=== PATIENT | male | born 1960 | race Caucasian/White ===

== ENCOUNTER 2017-01-19 13:04 | Emergency (ER) | payer BC ==
[2017-01-19 13:08] VITALS: BP 195/108; PULSE 77; TEMP 98.6; BMI 26.9
--- NOTE | 2017-01-19 14:18 | PDOC ---
History of Present Illness - General Chief Complaint: Pain, Acute Stated Complaint: RT FEET PAIN Time Seen by Provider: 01/19/17 13:34 History Source: Patient Exam Limitations: No Limitations - History of Present Illness Initial Comments: 01/19/17 14:15 56 yr male with history of right foot fracture in the past states he was walking in the ocean yesterday with water shoes on and felt a pop to the bottom of his right foot. Past History - Past Medical History Allergies/Adverse Reactions: Allergies Allergy/AdvReac Type Severity Reaction Status Date / Time No Known Allergies Allergy Verified 01/19/17 13:05 Home Medications: Ambulatory Orders Amlodipine Besylate [Norvasc -] 5 mg PO DAILY 01/19/17 Aspirin [ASA -] 81 mg PO DAILY 01/19/17 Losartan/Hydrochlorothiazide [Hyzaar 100-25 Tablet] 1 each PO DAILY 01/19/17 Metoprolol Succinate [Toprol Xl -] 100 mg PO DAILY 01/19/17 Pravastatin Sodium [Pravachol (Nf)] 40 mg PO DAILY 01/19/17 Prednisone [Deltasone -] 20 mg PO DAILY 01/19/17 Zolpidem Tartrate [Ambien] 10 mg PO DAILY 01/19/17 HTN: Yes - Psycho/Social/Smoking Cessation Hx Anxiety: No Suicidal Ideation: No Smoking History: Never smoked Have you smoked in the past 12 months: No Information on smoking cessation initiated: No Hx Alcohol Use: No Drug/Substance Use Hx: No Substance Use Type: Alcohol *Physical Exam - Vital Signs Last Vital Signs Temp Pulse Resp BP Pulse Ox 98.6 F 77 18 195/108 100 01/19/17 13:06 01/19/17 13:06 01/19/17 13:06 01/19/17 13:06 01/19/17 13:06 - Physical Exam General Appearance: Yes: Nourished, Appropriately Dressed HEENT: positive: EOMI, EVAN Neck: positive: Supple Respiratory/Chest: positive: Lungs Clear, Normal Breath Sounds Cardiovascular: positive: Regular Rhythm, Regular Rate Extremity: positive: Normal Capillary Refill, Tender (right base of fifth metatarsal, palpable bony deformity that is chronic) Integumentary: positive: Normal Color, Dry, Warm 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 xray shows transverse fracture through the 5th metatarsal that appears chronic, pt states he has old injury old fracture to that area pt has no swelling or any new deformity 01/19/17 14:20 *DC/Admit/Observation/Transfer Diagnosis at time of Disposition: Injury of right foot Qualifiers: Encounter type: initial encounter Qualified Code(s): S99.921A - Unspecified injury of right foot, initial encounter - Discharge Dispostion Disposition: HOME Condition at time of disposition: Good - Referrals Referrals: Adam Black [Primary Care Provider] - - Patient Instructions Additional Instructions: please follow with your foot doctor this week elevate and apply ice to the area of pain every 2hrs for 15-20 minutes take aleve for pain as needed use the insert in your shoes to help with support - Post Discharge Activity
== END 2017-01-19 14:24 | disposition home or self-care (01) ==
LOC: JERFT 13:04
DX: S99.821A Other specified injuries of right foot, initial encounter (principal); X50.9XXA Other and unspecified overexertion or strenuous movements or postures, initial encounter; Y93.01 Activity, walking, marching and hiking; Y92.832 Beach as the place of occurrence of the external cause; Y99.8 Other external cause status
CPT/HCPCS: 73630-TC-RT; 99281-25

== ENCOUNTER 2017-02-19 13:28 | Emergency (ER) | payer OTHER, BC ==
[2017-02-19 13:36] VITALS: BP 165/95; PULSE 62; TEMP 98.6; BMI 26.9
[2017-02-19] MEDS ORDERED: KETOROLAC TROMETHAMINE 60 MG/2 ML VIAL IM ONE (14:07)
[2017-02-19] MEDS ORDERED: KETOROLAC TROMETHAMINE 60 MG/2 ML VIAL ONE (14:08)
--- NOTE | 2017-02-19 14:44 | PDOC ---
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 Patient states symptoms have worsened with movement and denies any weakness to the extremity, swelling to the area or previous injury to affected area. Timing/Duration: getting worse, intermittent Severity: moderate Associated Symptoms: denies: denies symptoms Past History - Travel Traveled outside of the country in the last 30 days: No - Past Medical History Allergies/Adverse Reactions: Allergies Allergy/AdvReac Type Severity Reaction Status Date / Time No Known Allergies Allergy Verified 02/19/17 13:36 Home Medications: Ambulatory Orders Amlodipine Besylate [Norvasc -] 5 mg PO DAILY 01/19/17 Aspirin [ASA -] 81 mg PO DAILY 01/19/17 Losartan/Hydrochlorothiazide [Hyzaar 100-25 Tablet] 1 each PO DAILY 01/19/17 Metoprolol Succinate [Toprol Xl -] 100 mg PO DAILY 01/19/17 Pravastatin Sodium [Pravachol (Nf)] 40 mg PO DAILY 01/19/17 Zolpidem Tartrate [Ambien] 10 mg PO DAILY 01/19/17 HTN: Yes Other medical history: denies - Suicide/Smoking/Psychosocial Hx Smoking History: Never smoked Have you smoked in the past 12 months: No Information on smoking cessation initiated: No Hx Alcohol Use: No Drug/Substance Use Hx: No Substance Use Type: None Patient Lives Alone: No Lives with/in: spouse/SO Review of Systems - Review of Systems Able to Perform ROS?: Yes Constitutional: No: Symptoms Reported HEENTM: No: Symptoms Reported Respiratory: No: Symptoms reported Cardiac (ROS): No: Symptoms Reported ABD/GI: No: Symptoms Reported Musculoskeletal: Yes: Joint Pain (rt shoulder), Neck Pain Integumentary: No: Symptoms Reported Neurological: No: Symptoms reported Hematologic/Lymphatic: No: Symptoms Reported *Physical Exam - Vital Signs Last Vital Signs Temp Pulse Resp BP Pulse Ox 98.6 F 62 19 165/95 100 02/19/17 13:33 02/19/17 13:33 02/19/17 13:33 02/19/17 13:33 02/19/17 13:33 - Physical Exam General Appearance: Yes: Nourished, Appropriately Dressed. No: Apparent Distress Neck: positive: Supple, Tender lateral (rt scm). negative: Decreased range of motion Respiratory/Chest: positive: Lungs Clear, Normal Breath Sounds. negative: Respiratory Distress, Accessory Muscle Use Cardiovascular: positive: Regular Rhythm, Regular Rate. negative: Murmur Extremity: positive: Normal Capillary Refill, Normal Inspection, Tender (rt ac joint). negative: Normal Range of Motion (unable to perform rt arm lateral or front raise) Integumentary: positive: Normal Color, Warm, Moist Neurologic: positive: Motor Strength 5/5 (rt shoulder shrug and hand grasp) ED Treatment Course - RADIOLOGY Radiology Studies Ordered: Category Date Time Status SHOULDER-RIGHT [RAD] Stat Radiology 02/19/17 14:07 Taken SPINE-CERVICAL [RAD] Stat Radiology 02/19/17 14:07 Taken - Medications Given in the ED: ED Medications Discontinued Medications Generic Name Dose Route Start Last Admin Trade Name Freq PRN Reason Stop Dose Admin Ketorolac Tromethamine 60 mg 02/19/17 14:07 02/19/17 14:12 Toradol Injection - IM 02/19/17 14:08 60 mg ONCE ONE Administration Medical Decision Making - Medical Decision Making 02/19/17 14:30 Pt here for evaluation of ongoing or worsening right shoulder pain. Patient on exam had point tenderness to the right ac joint joint along with limited mobility performing lateral in front raise. Patient with slightly rotator cuff injury patient ordered for Toradol IM with recommendations to follow-up with orthopedist. 02/19/17 15:06 X-ray of the cervical spine shows moderate to marked right c6-C7, left C3 to C4 and moderate left C6-C7. Stenosis with multilevel bilateral degenerative facet athropathy. Shoulder x-ray shows mild to moderate degenerative bony hypertrophic change. Acromioclavicular degenerative athropathy noted with an elliptical shape calcified/ossified soft tissue focus noted within the adjacent area to the proximal humeral metaphysis laterally as discussed. *DC/Admit/Observation/Transfer Diagnosis at time of Disposition: Right shoulder injury Qualifiers: Encounter type: initial encounter Qualified Code(s): S49.91XA - Unspecified injury of right shoulder and upper arm, initial encounter - Discharge Dispostion Disposition: HOME Condition at time of disposition: Good - Referrals Referrals: Adam Black [Primary Care Provider] - Mohsen Velasco MD [Staff Physician] - - Patient Instructions Printed Discharge Instructions: DI for Shoulder Pain Additional Instructions: Please follow-up with Dr. Velasco, the orthopedist as discussed. May take Motrin every 6-8 hours. May apply ice to the affected area.
== END 2017-02-19 15:18 | disposition home or self-care (01) ==
LOC: JERFT 13:28
PROC: 3E0233Z Introduction of Anti-inflammatory into Muscle, Percutaneous Approach (ICD-10-PCS; principal; 2017-02-19)
DX: S49.81XA Other specified injuries of right shoulder and upper arm, initial encounter (principal); X50.0XXA Overexertion from strenuous movement or load, initial encounter; Y93.H9 Activity, other involving exterior property and land maintenance, building and construction; Y92.69 Other specified industrial and construction area as the place of occurrence of the external cause; Y99.0 Civilian activity done for income or pay
CPT/HCPCS: 72050-TC; 73030-TC-RT; 99281-25

== ENCOUNTER 2017-06-20 14:10 | Emergency (ER) | payer BC ==
[2017-06-20 14:17] VITALS: TEMP 98.6; BMI 26.6
--- NOTE | 2017-06-20 14:41 | PDOC ---
History of Present Illness - General Chief Complaint: Urinary Problem Stated Complaint: retention / PROBLEM URINATING Time Seen by Provider: 06/20/17 14:26 History Source: Patient Exam Limitations: No Limitations - History of Present Illness Travel History: No Initial Comments: 06/20/17 14:44 Patient came to emergency department from suggestion of Dr. ELINA andrews to be evaluated for urinary retention. patient was seen last possibly one month ago and was told had an enlarged prostate but his PSA numbers have been okay. since last night has had difficulty urinating and has been only going "a few drops at a time". Denies fever, denies nausea vomiting, denies any pain or burning with his urine before this incident. has had some mild constipation secondary to inability to urinate Timing/Duration: reports: constant, getting worse Quality: reports: moderate, severe Abdominal Pain Onset Location: reports: suprapubic, generalized abdomen Pain Radiation: reports: no radiation Activities at Onset: reports: none Past History - Travel Traveled outside of the country in the last 30 days: No Close contact w/someone who was outside of country & ill: No - Past Medical History Allergies/Adverse Reactions: Allergies Allergy/AdvReac Type Severity Reaction Status Date / Time No Known Allergies Allergy Verified 06/20/17 14:13 Home Medications: Ambulatory Orders Amlodipine Besylate [Norvasc -] 5 mg PO DAILY 01/19/17 Losartan/Hydrochlorothiazide [Hyzaar 100-25 Tablet] 1 each PO DAILY 01/19/17 Metoprolol Succinate [Toprol Xl -] 100 mg PO DAILY 01/19/17 Pravastatin Sodium [Pravachol (Nf)] 40 mg PO DAILY 01/19/17 Zolpidem Tartrate [Ambien] 10 mg PO DAILY 01/19/17 Alfuzosin HCl [Uroxatral] 10 mg PO DAILY 06/20/17 COPD: No HTN: Yes Hypercholesterolemia: Yes Other medical history: bph - Suicide/Smoking/Psychosocial Hx Smoking History: Never smoked Have you smoked in the past 12 months: No Information on smoking cessation initiated: No Hx Alcohol Use: No Drug/Substance Use Hx: No Substance Use Type: None Review of Systems - Review of Systems Able to Perform ROS?: Yes Is the patient limited Turkish proficient: Yes Constitutional: Yes: Symptoms Reported, See HPI, Malaise HEENTM: Yes: See HPI. No: Symptoms Reported Respiratory: Yes: See HPI. No: Symptoms reported, Cough ABD/GI: Yes: Symptoms Reported, See HPI, Abdominal cramping. No: Nausea, Vomiting : Yes: Symptoms Reported, See HPI, Pain, Urgency, Other (retention) Neurological: No: Symptoms reported All Other Systems: Reviewed and Negative *Physical Exam - Vital Signs Last Vital Signs Temp Pulse Resp BP Pulse Ox 98.6 F 69 18 147/94 100 06/20/17 14:14 06/20/17 14:14 06/20/17 14:14 06/20/17 14:14 06/20/17 14:14 - Physical Exam General Appearance: Yes: Nourished, Appropriately Dressed, Apparent Distress, Mild Distress HEENT: positive: EVAN, Normal ENT Inspection, Pharynx Normal. negative: EOMI, TMs Normal Neck: positive: Supple. 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 No bleeding, discoloration, clots noted. We will provide leg bag and instructions for its use. Patient understands need follow-up with Dr. Mya Cruz on Thursday. *DC/Admit/Observation/Transfer Diagnosis at time of Disposition: Acute urinary retention - Discharge Dispostion Disposition: HOME Condition at time of disposition: Stable Admit: No - Referrals Referrals: Adam Black [Primary Care Provider] - - Patient Instructions Printed Discharge Instructions: How to Care for Your Anderson Catheter -- Male, DI for Urinary Retention in Men Additional Instructions: Rest, avoid heavy lifting or strenuous activity until seen by Dr. Segal drink lots of fluids: Teas, water, soups Continue [id number] medications for symptomatic relief Tylenol or Motrin for fever and pain Followup with Dr Segal Cynthia AM at 9A Return to emergency department for worsened symptoms, fevers, dehydration - Post Discharge Activity Forms/Work/School Notes: Back to Work
[2017-06-20] MEDS ORDERED: LIDOCAINE HCL 2% JELLY 10 ML CARTRIDGE ONE (15:10)
[2017-06-20 16:13] LABS: URINE APPEARANCE CLEAR; URINE BILIRUBIN NEGATIVE (NEGATIVE); URINE BLOOD 1+ (NEGATIVE); URINE COLOR LTYELLOW; URINE GLUCOSE (UA) NEGATIVE (NEGATIVE); URINE KETONE NEGATIVE (NEGATIVE); URINE LEUK ESTERASE NEGATIVE (NEGATIVE); URINE NITRITE NEGATIVE (NEGATIVE); URINE PROTEIN NEGATIVE (NEGATIVE); URINE UROBILINOGEN NEGATIVE mg/dL (0.2-1.0)
[2017-06-20 16:30] LABS: URINE MUCUS RARE
[2017-06-20 16:33] VITALS: BP 146/69; PULSE 61
== END 2017-06-20 16:33 | disposition home or self-care (01) ==
LOC: JER 14:10
PROC: 0T9B70Z Drainage of Bladder with Drainage Device, Via Natural or Artificial Opening (ICD-10-PCS; principal; 2017-06-20)
DX: N40.1 Benign prostatic hyperplasia with lower urinary tract symptoms (principal); R33.8 Other retention of urine; I10 Essential (primary) hypertension; E78.00 Pure hypercholesterolemia, unspecified
CPT/HCPCS: 81003; 81015; 87086; 99282-25

== ENCOUNTER 2022-03-16 12:53 | Emergency (ER) | payer BC ==
[2022-03-16 13:02] VITALS: BP 153/89; PULSE 62; RESP 18; TEMP 98.4; BMI 25.8
== END 2022-03-16 15:16 | disposition home or self-care (01) ==
LOC: JER 12:53
DX: G51.0 Bell's palsy (principal)
CPT/HCPCS: 70450-TC; 93005; 93010; 99284-25